=== PATIENT | female | born 1955 | race Hispanic/Latino ===

== ENCOUNTER 2016-10-12 12:25 | Emergency (ER) | payer BC ==
[2016-10-12 12:26] VITALS: BMI 27.3
[2016-10-12 12:53] VITALS: TEMP 98
--- NOTE | 2016-10-12 13:16 | ED PDOC ---
Arrival/HPI - General Historian: Patient - History of Present Illness Time/Duration: 1-3 hours Symptom Onset: Sudden Symptom Course: Resolved Activities at Onset: Other (standing from seating position.) Context: Home - General Chief Complaint: Dizziness/Lightheaded Time Seen by Provider: 10/12/16 13:03 - History of Present Illness Narrative History of Present Illness (Text): 10/12/16 13:11 Patient is a 60 y/o with PMH of htn, diet controlled DM, 2 pack a day tobacco use presenting with dizziness and lightheadedness for 1 day. Patient states this afternoon when she got up from seating position she felt lightheaded, and dizzy, almost light the couch was moving. Then she she sat down on the inclined sofa with her feet up she felt the symptom again. Patient denies feeling like the room is spinning, denies photophobia, admits to mild headache. Patient denies cp, sob, cough, n/v/d. Denies fever, chills, dysuria. Patient states she was drinking liquid all day. Reports she has central air in the her house, but decided to turn it off, to "air out" the house, but didn't feel like the house was humid. Patient admits to medication non compliance, states she forget to take her BP med. When EMS checked her BP it was 190/100. (Kailey Ness) Past Medical History - Provider Review Nursing Documentation Reviewed: Yes - Travel History Have you recently traveled outside [place] w/in the past 3 mons?: No - Infectious Disease Hx of Infectious Diseases: None - Reproductive Menopause: Yes - Cardiac Hx Hypertension: Yes - Gastrointestinal Hx Diverticulitis: Yes Other/Comment: abd. surgery due to diverticulitis - Psychiatric Hx Depression: No Hx Emotional Abuse: No Hx Physical Abuse: No Hx Substance Use: No - Anesthesia Hx Anesthesia Reactions: No Hx Malignant Hyperthermia: No - Suicidal Assessment Feels Threatened In Home Enviroment: No Family/Social History - Physician Review Nursing Documentation Reviewed: Yes Family/Social History: Diabetes, Hypertension, CAD/DC Smoking Status: Current Some Days Smoker Hx Alcohol Use: No Hx Substance Use: No Hx Substance Use Treatment: No Allergies/Home Meds Allergies/Adverse Reactions: Allergies No Known Allergies Allergy (Verified 03/30/13 07:11) Home Medications: Home Meds Medication Instructions Recorded Confirmed Atorvastatin [Lipitor] 20 mg PO DIN 03/16/15 10/12/16 Nebivolol HCl [Bystolic] 5 mg PO DAILY 03/16/15 10/12/16 Review of Systems - Review of Systems Constitutional: Normal Eyes: Normal ENT: Normal Respiratory: Normal Cardiovascular: Normal Gastrointestinal: Normal Genitourinary Female: Normal Musculoskeletal: Normal Skin: Normal Neurological: Normal Endocrine: Normal Hemo/Lymphatic: Normal Psychiatric: Normal Physical Exam Vital Signs Reviewed: Yes Temperature: Afebrile Blood Pressure: Hypertensive Pulse: Bradycardic Respiratory Rate: Normal Appearance: Positive for: Well-Appearing, Non-Toxic, Comfortable Pain Distress: None Mental Status: Positive for: Alert and Oriented X 3 Finger Stick Blood Glucose: 216 - Systems Exam Head: Present: Atraumatic, Normocephalic. No: Tenderness Pupils: Present: PERRL Mouth: Present: Dry Neck: Present: Normal Range of Motion Respiratory/Chest: Present: Clear to Auscultation, Good Air Exchange. No: Respiratory Distress, Accessory Muscle Use Cardiovascular: Present: Regular Rate and Rhythm, Bradycardic. No: Murmurs, Normal S1, S2 Abdomen: Present: Normal Bowel Sounds. No: Tenderness, Distention Upper Extremity: Present: Normal Inspection. No: Cyanosis, Edema Lower Extremity: Present: Normal Inspection. No: Edema Neurological: Present: GCS=15, CN II-XII Intact, Speech Normal, Motor Func Grossly Intact Skin: Present: Warm, Dry, Normal Color. No: Rashes Psychiatric: Present: Alert, Oriented x 3, Normal Insight, Normal Concentration Medical Decision Making Re-evaluation Time: 15:05 Reassessment Condition: Re-examined, Improved - EKG Interpretation Interpreted by ED Physician: Yes Type: 12 lead EKG ED Course and Treatment: 10/12/16 13:20 Patient is a 60 y/o with h/o diet controlled, DM, htn, heavy tobacco user, medication non compliance presenting with near syncopal episode. Patient found to have uncontrolled htn. Differentials; dehydration, versus orthostatic hypotension, hypertension, r/o cva. Plan: cbc, cmp, tsh Ct head EKG Orthostatic vital signs. Discussed with Dr Clarke. 10/12/16 15:09 Chest x-ray with small retro-cardiac opacity, discussed with patient, patient denies pneumonia symptoms such as cough, or fever. (Kailey Ness) Patient seen and examined with resident. Came up with treatment and disposition plan with resident. The pt is well-appearing without any symptoms in the ED. She is ambulatory in the room when I went to see her. She tells me this has happened several times in the past and she wishes to go home. I disc cxr results and given she has no sx of pneumonia we will defer abx at this time but she will f/u w pcp and understands to return if she develops cough, fever, etc. (Jong Clarke) - Lab Interpretations Microbiology Results: Microbiology Results 10/12/16 15:10 Urine,Clean Catch Urine Culture - Final No Growth (<1,000 CFU/ML) Lab Results: 10/12/16 13:45 10/12/16 13:45 Lab Results 10/12/16 15:10: Urine Color Yellow, Urine Appearance Clear, Urine pH 6.0, Ur Specific [place] 1.010, Urine Protein Negative, Urine Glucose (UA) Negative, Urine Ketones Negative, Urine Blood Negative, Urine Nitrate Negative, Urine Bilirubin Negative, Urine Urobilinogen 0.2, Ur Leukocyte Esterase Trace H, Urine RBC 1 - 3, Urine WBC 1 - 3, Ur Epithelial Cells 3 - 4, Urine Bacteria Few 10/12/16 13:45: TSH 3rd Generation 1.38 10/12/16 13:45: Sodium 137, Potassium 3.5 L, Chloride 101, Carbon Dioxide 25, Anion Gap 15, BUN 10, Creatinine 0.5, Est GFR ( Amer) > 60, Est GFR (Non- Af Amer) > 60, Random Glucose 204 H, Calcium 9.6, Total Bilirubin 0.4, AST 26, ALT 39, Alkaline Phosphatase 86, Troponin I < 0.01, Total Protein 7.7, Albumin 4.5, Globulin 3.3, Albumin/Globulin Ratio 1.4 10/12/16 13:45: WBC 9.3, RBC 4.79, Hgb 14.1, Hct 41.0, MCV 85.6, MCH 29.4, MCHC 34.4, RDW 12.7, Plt Count 218, MPV 9.4, Gran % 60.3, Lymph % (Auto) 32.9, [place] % (Auto) 5.3, Eos % (Auto) 0.9 L, Baso % (Auto) 0.6, Gran # 5.61, Lymph # 3.1, [place] # 0.5, Eos # 0.1, Baso # 0.06 - RAD Interpretation Narrative RAD Interpretations (Text): 10/12/16 15:07 Small retrocardiac opacity likely atelectasis versus pneumonia. (Kailey Ness) Radiology Orders: 10/12/16 13:10 HEAD W/O CONTRAST [CT] Stat 10/12/16 14:21 CHEST PORTABLE [RAD] Stat - EKG Interpretation EKG Interpretation (Text): 10/12/16 13:29 NSR HR of 61 BMP, Voltage criteria LVH. Flattened T waves. (Kailey Ness) - Medication Orders Current Medication Orders: Discontinued Medications Sodium Chloride (Sodium Chloride 0.9%) 1,000 mls @ 999 mls/hr IV .Q1H1M STA Stop: 10/12/16 15:16 Last Admin: 10/12/16 14:00 Dose: 999 mls/hr Potassium Chloride (K-Dur 20 Meq Er Tab) 40 meq PO STAT STA Stop: 10/12/16 14:20 Last Admin: 10/12/16 15:08 Dose: 40 meq Disposition/Present on Arrival - Present on Arrival Any Indicators Present on Arrival: No History of DVT/PE: No History of Uncontrolled Diabetes: No Urinary Catheter: No History of Decub. Ulcer: No History Surgical Site Infection Following: None - Disposition Have Diagnosis and Disposition been Completed?: Yes Disposition Time: 15:05 Patient Plan: Discharge - Disposition Diagnosis: Pre-syncope, Dehydration Disposition: HOME/ ROUTINE Condition: IMPROVED Discharge Instructions (ExitCare): Dehydration (ED), Dizziness (ED) Additional Instructions: Please drink plenty of water . Take your blood pressure medications as prescribed. Follow up with your outbound supervisor as outpatient Please come to the nearest emergency room if you experience the symptoms again, have fever, chills, chest pain and/or shortness of breath. Referrals: [facility] Marta Aguirre, [Non-Staff] - Follow up with primary
[2016-10-12 13:46] LABS: ADD MANUAL DIFF? NO
--- NOTE | 2016-10-12 13:48 | CT ---
PROCEDURE: CT HEAD WITHOUT CONTRAST. HISTORY: pre-syncope COMPARISON: CT head without contrast performed 03/16/15 TECHNIQUE: Axial computed tomography images were obtained through the head/brain without intravenous contrast. Radiation dose: Total exam DLP = 733.59 mGy-cm. This CT exam was performed using one or more of the following dose reduction techniques: Automated exposure control, adjustment of the mA and/or kV according to patient size, and/or use of iterative reconstruction technique. FINDINGS: HEMORRHAGE: No intracranial hemorrhage. BRAIN: No mass effect or edema. Mild scattered periventricular and subcortical white matter hypodensities, which are nonspecific, but often seen with chronic microvascular ischemic disease. Please note that MRI with diffusion imaging is more sensitive in the detection of acute ischemic event. VENTRICLES: No hydrocephalus. CALVARIUM: Unremarkable. PARANASAL SINUSES: Unremarkable as visualized. No significant inflammatory changes. MASTOID AIR CELLS: Unremarkable as visualized. No inflammatory changes. OTHER FINDINGS: None. IMPRESSION: Mild scattered nonspecific white matter changes as above.
[2016-10-12 13:49] LABS: BASO # 0.06 K/mm3 (0.0-2.0); BASO % 0.6 % (0.0-3.0); EOS # 0.1 (0.0-0.7); EOS % 0.9 % (1.5-5.0); GRAN # 5.61 (1.4-6.5); GRAN % 60.3 % (50.0-68.0); LYMPH # 3.1 (1.2-3.4); LYMPH % 32.9 % (22.0-35.0); MEAN CELL VOLUME 85.6 fL (80.0-105.0); MEAN CORPUSCULAR HEMOGLOBIN 29.4 pg (25.0-35.0); MEAN CORPUSCULAR HGB CONC 34.4 g/dl (31.0-37.0); MEAN PLATELET VOLUME 9.4 fl (7.0-11.0); MONO # 0.5 (0.1-0.6); MONO % 5.3 % (1.0-6.0); PLATELET COUNT 218 10^3/uL (120.0-450.0); RED CELL DISTRIBUTION WIDTH 12.7 % (11.5-14.5); WHITE BLOOD COUNT 9.3 10^3/ul (4.5-11.0)
[2016-10-12 13:59] LABS: ALB/GLOB RATIO 1.4 (1.1-1.8); ALKALINE PHOSPHATASE 86 U/L (38-133); ALT/SGPT 39 U/L (7-56); AST/SGOT 26 U/L (15-39); BILIRUBIN,TOTAL 0.4 mg/dL (0.2-1.3); BLOOD UREA NITROGEN 10 mg/dL (7-21); CALCIUM 9.6 mg/dL (8.4-10.5); CARBON DIOXIDE 25 mmol/L (21-33); CHLORIDE 101 mmol/L (98-107); GFR AFRICAN-AMERICAN > 60; GLUCOSE,RANDOM 204 mg/dL (70-110); POTASSIUM 3.5 mmol/L (3.6-5.0); SODIUM 137 mmol/L (132-148); TOTAL PROTEIN 7.7 g/dL (5.8-8.3)
[2016-10-12 14:13] LABS: TROPONIN I < 0.01 ng/mL
[2016-10-12] MEDS ORDERED: Sodium Chloride 0.9% 1,000 ML IV STA (14:16)
[2016-10-12] MEDS ORDERED: Potassium Chloride 20 mEq ER Tab PO STA (14:19)
--- NOTE | 2016-10-12 15:00 | RAD ---
HISTORY: pre-syncope COMPARISON: Chest x-ray performed 03/16/15 TECHNIQUE: Chest, one view. FINDINGS: Limited by habitus. LUNGS: Small retrocardiac opacity may reflect atelectasis or pneumonia. Please note that chest x-ray has limited sensitivity for the detection of pulmonary masses. PLEURA: No significant pleural effusion identified. No definite pneumothorax . CARDIOVASCULAR: Heart size appears top normal. Atherosclerotic calcifications of the aorta. OSSEOUS STRUCTURES: Degenerative changes of the spine. VISUALIZED UPPER ABDOMEN: Unremarkable. OTHER FINDINGS: None. IMPRESSION: Small retrocardiac opacity may reflect atelectasis or pneumonia.
[2016-10-12 15:35] LABS: URINE BILIRUBIN NEGATIVE (NEGATIVE); URINE BLOOD NEGATIVE (NEGATIVE); URINE GLUCOSE (UA) NEGATIVE (NEGATIVE); URINE KETONE NEGATIVE (NEGATIVE); URINE LEUKOCYTE ESTERASE TRACE Leu/uL (NEGATIVE); URINE PROTEIN NEGATIVE mg/dL (<30 mg/dL); URINE UROBILINOGEN 0.2 E.U./dL (<1 E.U./dL)
[2016-10-12 15:36] VITALS: BP 154/71; PULSE 63; RESP 18; O2SAT 99
[2016-10-12 15:38] LABS: URINE APPEARANCE CLEAR (CLEAR); URINE COLOR YELLOW (YELLOW)
[2016-10-12 15:56] LABS: URINE BACTERIA FEW (NEG)
--- NOTE | 2016-10-13 17:48 | CARD ---
APPROVED REPORT EKG Measurement Heart [id number] <Conclusion> Normal sinus rhythm Minimal voltage criteria for LVH, may be normal variant Nonspecific ST and T wave abnormality Abnormal ECG
== END 2016-10-12 15:35 | disposition home or self-care (01) ==
LOC: ED 12:25
DX: E86.0 Dehydration (principal); R55 Syncope and collapse; I10 Essential (primary) hypertension; Z72.0 Tobacco use
CPT/HCPCS: 70450; 71010; 80053; 81001; 84443; 84484; 85025; 87086; 93005; 96360; 99285; J7040